=== PATIENT | female | born 1955 | race Caucasian/White ===

== ENCOUNTER 2016-08-07 15:24 | Observation (INO) | payer OTHER ==
[~2016-08-07] VITALS: Ht 165.1 cm; Wt 66.2 kg
--- NOTE | ~2016-08-07 | CON ---
PATIENT'S NAME: NITIN THOMPSON [facility] AGE: 61 Y [address] ROOM: [address] [place], [place] [address] LOCATION: GPCU ADMIT DATE: 08/07/2016 Consultation DISCHARGE DATE: FAMILY PHYSICIAN: SPENCER HUMPHREY MD ATTENDING PHYSICIAN: GAGAN MANRIQUEZ V DATE OF CONSULTATION: 08/08/2016 REFERRING PHYSICIAN: CUONG ROJAS MD HOSPITAL CONSULTATION REFERRING PROVIDER: Gagan Manriquez MD REASON FOR CONSULTATION: GI bleed and anemia. HISTORY OF PRESENT ILLNESS: This is a very pleasant, 61-year-old female, who was admitted through [facility]'s Emergency Room. The patient was complaining of increasing fatigue and near syncope episode as well as palpitations and some chest pain. She did state that her stomach has been "upset" for a number of days, though she has experienced a significant amount of stress at home secondary to losing her mother as well as her recently diagnosed with multiple myeloma. The patient has a history of iron-deficiency anemia as well as a hiatal hernia. From our records in 2013, she did undergo an upper endoscopy and colonoscopy in September of 2013. Her upper endoscopy did show a hiatal hernia. Her colonoscopy did show some scattered diverticula as well as some internal hemorrhoids, though no explanation for acute blood loss. She was recommended at that time to undergo a small bowel workup though did not go forth with any small bowel workup. She was found to be iron deficient with an iron of 23, TIBC of 479 as well as percent saturation of 5. She does admit to taking iron at home, though she states that she is nonconsistent every day. The patient was seen and examined. She does state that she feels that her abdomen is having "spasms." She has some mid-epigastric discomfort. She does also complain of some fatigue and lightheadedness. On admission, her hemoglobin was 6.0. She was transfused 2 units of packed red blood cells with a recheck hemoglobin of 8.2. She also had a Hematest positive at that time. She states that she is feeling much better from her initial presentation. She does use ibuprofen, not excessively, though admits to 1 tablet per day, with some times 2. The patient currently denies any chest pain, chest pressure, or shortness of breath. She does state that her weight has been stable. She denies any melenic stool and/or bright red blood per rectum. PATIENT'S NAME: NITIN THOMPSON [facility] AGE: 61 Y [address] ROOM: [place] [id number] LOCATION: GPCU ADMIT DATE: 08/07/2016 Consultation DISCHARGE DATE: FAMILY PHYSICIAN: SPENCER HUMPHREY MD ATTENDING PHYSICIAN: GAGAN MANRIQUEZ V PAST MEDICAL HISTORY: Iron-deficiency anemia. PAST SURGICAL HISTORY: Upper endoscopy and colonoscopy in 09/2013 secondary to anemia with no clear etiology. SOCIAL HISTORY: The patient denies any tobacco, alcohol, or recreational drug use. FAMILY HISTORY: The patient's mother had COPD. She denies any colon cancer or gastrointestinal diseases in her family. ALLERGIES: MACROLIDE ANTIBIOTICS, ETHYL ALCOHOL, ERYTHROMYCIN BASE, AZITHROMYCIN, AND LATEX. CURRENT MEDICATIONS: Please refer to the medication administration record. REVIEW OF SYSTEMS: A 10-point review of systems was completed. All were negative except for those identified in the History of Present Illness. PHYSICAL EXAMINATION: GENERAL: A very pleasant, 61-year-old female, lying in bed, who appears to be in no acute distress. VITAL SIGNS: Temperature 98.3, pulse of 74, respirations of 16, blood pressure 170/93, and oxygen saturation is 99% on room air. SKIN: [place], warm, and dry. No jaundice. HEENT: Head is normocephalic and atraumatic. Pupils are equal, round, and reactive to light. Sclerae are clear. Nonicteric. Oral mucosa is pink and moist. No thyromegaly. NECK: Soft and supple. CARDIOVASCULAR: Regular. Normal S1 and S2. RESPIRATORY: Respirations are even and unlabored. LUNGS: Clear to auscultation. ABDOMEN: Soft, round, nontender, and nondistended. Bowel sounds positive x4 quadrants. MUSCULOSKELETAL: No muscle weakness or atrophy. EXTREMITIES: No clubbing, cyanosis, or edema. NEUROLOGIC: Grossly nonfocal. LABORATORY DATA AND IMAGING STUDIES: PATIENT'S NAME: NITIN THOMPSON [facility] AGE: 61 Y [address] ROOM: [place] [address] LOCATION: GPCU ADMIT DATE: 08/07/2016 Consultation DISCHARGE DATE: FAMILY PHYSICIAN: SPENCER HUMPHREY MD ATTENDING PHYSICIAN: GAGAN MANRIQUEZ V Labs and Diagnostics: White blood cell count of 5.4, hemoglobin recheck of 8.2, with initial hemoglobin of 6.0, hematocrit of 26.5, MCV of 76.4, and platelets of 230,000. Chemistry panel includes a glucose of 102, BUN of 11, creatinine 0.7, sodium 143, potassium of 3.6, chloride of 112, and CO2 of 26. Liver enzymes on admission were all within normal limits. Hemoglobin A1c was less than 4.3. Cholesterol panel included a cholesterol of 117, triglycerides of 138, HDL of 44, VLDL of 27, and LDL of 46. Prothrombin time 10.0, INR is 0.95, and PTT of 21. Iron studies included iron of 23, TIBC of 479, and percent saturation of 5. Vitamin B12 of 693, folate of 18.9, ferritin of 5.30, and TSH was 1.240. Cardiac enzymes all have been within normal limits with a troponin of less than 0.040, CPK of 38, as well as CK-MB of 1.3. D- dimer was also within normal limits at 0.23. ASSESSMENT AND PLAN: Again this is a very pleasant, 61-year-old female, admitted with acute anemia with a hemoglobin of 6.0. She has received 2 units of packed red blood cells with a recheck of hemoglobin of 8.2. We were asked to see in consultation for anemia as well as positive Hematest stool. She is severely iron deficient with a positive Hematest stool. At this time, a long discussion was held with the patient for a complete workup of her acute blood loss as well as her anemia. The patient did undergo an upper endoscopy and colonoscopy in 2013 and is extremely hesitant to go forth with a repeat colonoscopy. I discussed in depth with the patient as well as Dr. Humphrey that was at bedside to give her information regarding making an "informed decision." It was left in agreement that the patient will undergo an upper endoscopy for further evaluation with her history of NSAID as well as increased stress. If negative for any etiology for anemia, possible colonoscopy would be warranted as this will be discussed in depth with the patient for her to make her entire decision. If both of these were negative, complete small bowel workup may be warranted to include a capsule endoscopy. We will make the patient n.p.o. at this time for possible upper endoscopy. Thank you for this consult and allowing us to participate in the care of this patient. We will continue to monitor, evaluate, and treat as appropriate. CATHERINE MERCHANT APRN FOR MD PRINCESS HANSON/zion /[id number] d: 08/08/16 1643 t: 08/12/16 1606, CONSULTATION REPORT
--- NOTE | ~2016-08-07 | HP ---
PATIENT'S NAME: NAI THOMPSONH Reece [facility] AGE: 61 Y [address] ROOM: [place] [address] LOCATION: GPCU ADMIT DATE: 08/07/2016 History & Physical DISCHARGE DATE: FAMILY PHYSICIAN: SPENCER THOMASON MD ATTENDING PHYSICIAN: STEF MORAES DATE OF SERVICE: CHIEF COMPLAINT: Chest pain and fatigue as well as palpitations. HISTORY OF PRESENT ILLNESS: The patient is a 61-year-old female with past medical history of not fully characterized iron deficiency anemia as well as a hiatal hernia. She presented to the ER today with complaints of increasing fatigue, near syncope, palpitations, and some chest pain. She lost her mother last night, and unfortunately, has been under a lot of stress due to this. In the ER, the patient was found to have a hemoglobin of [address] depressions on her EKGs, though those are not available to me at this time. The patient reports that she has not been taking her 65 mg of iron that is prescribed to her for approximately last month. Her compliance with this medication is doubtful overall. She denies any nausea, vomiting, any black tarry stools, or bright red blood per rectum. She does not have any cardiac history. REVIEW OF SYSTEMS: All 10 systems have been reviewed and negative aside from pertinent positives as mentioned above. PAST MEDICAL HISTORY: Significant for iron deficiency anemia. The patient had a very similar episode in 2013. At that point, she had an EGD and colonoscopy which were both unremarkable by report. FAMILY HISTORY: Significant for COPD in her mother. CURRENT MEDICATIONS: The patient denies taking any. SOCIAL HISTORY: Negative for any history of ongoing toxic habits. PATIENT'S NAME: NITIN THOMPSON [facility] AGE: 61 Y [address] ROOM: [place] [address] LOCATION: GPCU ADMIT DATE: 08/07/2016 History & Physical DISCHARGE DATE: FAMILY PHYSICIAN: SPENCER THOMASON MD ATTENDING PHYSICIAN: STEF MORAES PHYSICAL EXAMINATION: VITAL SIGNS: At this point, her heart rate is 106, blood pressure 189/76, saturating 96%, afebrile, respirations 14. GENERAL: Appears well-developed, well-nourished middle-aged female, younger age than stated in no acute distress. NEUROLOGICAL: Nonfocal. SKIN: Slightly pale. EYES: Pupils are equal and reactive to light. LYMPHATIC: No cervical lymphadenopathy. ENDOCRINE: No thyromegaly. LUNGS: Clear to auscultation. HEART: Rate is slightly tachycardic and regular. GI: Abdomen is soft, nontender, nondistended. : No costovertebral angle tenderness. VASCULAR: 2+ pedal pulses. MUSCULOSKELETAL: Unremarkable. PSYCHIATRIC: Appropriate mood, cognition, and affect. LABORATORY DATA: Review of the studies performed in the ER, at this point, I do have access to her EKG, and there are appreciable ST-wave depressions in leads V2 as well as V3. These do extend to V2, V3, V4, V5 as well as V6 on an earlier EKG. BUN is 17. Hemoglobin is 6.0. MCV is 76.6. Chest x-ray does show a hiatal hernia. ASSESSMENT AND PLAN: This is a 61-year-old female who will be admitted with: 1. Acute on chronic microcytic anemia. I doubt any active GI bleeding despite a positive guaiac test in the ER. She denies any melena and her BUN is unremarkable. I suspect that this is likely worsening chronic anemia of iron deficiency due to noncompliance with her medications. The patient is receiving 2 units of packed red blood cells ordered in the ER. We will check her iron studies hopefully from a sample prior to the transfusions. We will bring her hemoglobin up to a more comfortable number. At this point, the patient is refusing PPIs as they caused her some diverticulitis several years back. We will put her on Pepcid as she did have some gastritis on an EGD done several years back. We will get a GI consultation in the morning. 2. Angina with ST-segment depression. The patient does not have any risk factors for coronary artery disease. However, the ST depressions are pronounced, and she has not had a cardiac workup in the past. We will offer her a stress test either on this admission as an outpatient depending on how well we are able to stabilize her hemoglobin. 3. Accelerated hypertension. We will put her on beta blockers p.r.n. PATIENT'S NAME: NITIN THOMPSON [facility] AGE: 61 Y [address] ROOM: [address] [address] LOCATION: [facility] ADMIT DATE: 08/07/2016 History & Physical DISCHARGE DATE: FAMILY PHYSICIAN: SPENCER THOMASON MD ATTENDING PHYSICIAN: STEF MORAES Additional management will depend on clinical course. Critical care time dedicated to this patient encounter is 35 minutes. MD PAUL GREENE/zion /[id number] D: [id number] T: [id number] HISTORY & PHYSICAL
--- NOTE | ~2016-08-07 | DS ---
PATIENT'S NAME: NITIN THOMPSON [facility] AGE: 61 Y [address] ROOM: [address] [place], [place] [address] LOCATION: GPCU ADMIT DATE: 08/07/2016 Discharge Summary DISCHARGE DATE: 08/09/2016 FAMILY PHYSICIAN: Parmjit Humphrey MD ATTENDING PHYSICIAN: Main Broderick V ATTENDING PHYSICIAN: Hiro Qiu MD FINAL DIAGNOSES: 1. Anemia, resolved. 2. Hiatal hernia with Francisco lesions on EGD. 3. History of stress disorder. 4. Hypertension. CONSULTATION: GI, Dr. Addison. PROCEDURES: EGD by Dr. Addison. REASON FOR ADMISSION: This is a 61-year-old female, who presented with chest pain and palpitations. The patient's chest pain was thought to be secondary to hiatal hernia. Please see Dr. Broderick' admission H and P for further details. DIAGNOSTIC STUDIES: Cardiac enzymes were done during this admission and were essentially normal. Serial CBCs were done. White count remained stable throughout the course of this hospitalization. Hemoglobin was 6.2 on admission and 9.1 at the time of discharge. Platelet count was within normal range. Serial BMP showed normal electrolytes and kidney function tests. Liver function tests were normal as well magnesium level was normal. Hemoglobin A1c less than 4.3. Lipid panel was done and showed total cholesterol 117, triglycerides 138, HDL 44, LDL 46. PT, INR, PTT normal. Serum iron 23, TIBC 479, percent saturation of 5, ferritin 5.3, folate level 18.9, vitamin B12 level 693. TSH 1.24. D-dimer 0.23 and normal. Transferrin level 343. Chest x-ray was done on admission and showed no evidence of acute cardiopulmonary disease. Large hiatal hernia was noted. Stool was positive for Hemoccult test. EKG showed sinus rhythm with no acute ST changes. There was some question about ST depression, but that was thought to be minimal during this admission. Repeat EKG showed no acute ST changes. HOSPITAL COURSE: The patient was admitted for evaluation and management of chest pain. Cardiac enzymes were normal. The patient's chest pain was thought to be secondary to hiatal hernia. She also had anemia on presentation with a hemoglobin of 6. The patient did not require any nitro. Her chest pain resolved. Her palpitations resolved. After the blood transfusion, she was given 2 unit PRBC transfusion. After the transfusion, hemoglobin remained PATIENT'S NAME: NITIN THOMPSON [facility] AGE: 61 Y [address] ROOM: [address] [place], [place] [address] LOCATION: GPCU ADMIT DATE: 08/07/2016 Discharge Summary DISCHARGE DATE: 08/09/2016 FAMILY PHYSICIAN: Parmjit Humphrey MD ATTENDING PHYSICIAN: Main Broderick. GI was consulted, and the patient underwent an EGD. The EGD showed hiatal hernia with Francisco lesions. GI thought that the patient be put on Protonix and follow up outpatient with GI. The patient will also decide if she needs surgery for the hiatal hernia. Repeat EKG was done since the initial EKG showed slight ST depression. Repeat EKG was normal. The patient did not have any chest pain throughout the course of this hospitalization. She continued to do well. She stated that she has some stress in her life currently. She continued to do well and was discharged and asked to follow up with her primary care physician. DISCHARGE INSTRUCTIONS: The patient discharged on regular diet with activity as tolerated. She is to follow up with Dr. Parmjit Humphrey in 3-4 days' time. Follow up with GI at [facility] in 1 to 2 weeks' time. PCP to check a CBC and a BMP. GI to follow up with biopsy results. GI to address colonoscopy. Outpatient GI to arrange for surgical consult for hiatal hernia if the patient decides. The patient will also need Cardiology followup. Cardiology followup will be arranged for the patient. I called the patient and advised Cardiology follow up. She mentioned she would like to follow up with Dr. Mj Stone. I updated Dr. Mj Stone about the patient's hospital course. Hospitalist co-ordinator will arrange Cardiology appointment with the office and call the patient back. Patient has been doing well at home with no chest pain. She was notified later of the cardiology followup. DISCHARGE MEDICATIONS: 1. Norvasc 10 mg p.o. daily. 2. Tylenol 650 mg p.o. q.6 hours p.r.n. pain. 3. Vitamin B complex one tab p.o. daily. 4. Iron 65 mg p.o. daily p.r.n. anemia. 5. Multivitamin 1 tab p.o. daily. 6. Protonix p.o. b.i.d. This patient was managed by hospitalist and GI teams during this admission. HIRO QIU MD MT/zion /[id number] d: 08/10/16 0146 t: 08/25/16 1807, DISCHARGE SUMMARY
--- NOTE | ~2016-08-07 | ER ---
PATIENT'S NAME: NITIN THOMPSON [facility] AGE: 61 Y [address] ROOM: [address] [place] [id number] LOCATION: GPCU ADMIT DATE: 08/07/2016 ER/Outpatient Report DISCHARGE DATE: FAMILY PHYSICIAN: SPENCER HUMPHREY MD ATTENDING PHYSICIAN: STEF MORAES Time of Arrival: 1524 hours. Time of Exam: 1530 hours. IDENTIFICATION: A 61-year-old female. CHIEF COMPLAINT: Chest pain. HISTORY OF PRESENT ILLNESS: The patient is a 61-year-old female who felt dizzy and lightheaded 1 hour prior to arrival. Feeling a sense of heaviness, like her heartbeat was pounding over her heart. She also had some shortness of breath and generalized weakness. She has never had this happened before. She has no history of coronary artery disease. She does have a major stressor, her mother yesterday. The entire episode lasted approximately 20 minutes. At this time, the pounding sensation and heaviness has resolved. PAST MEDICAL HISTORY: ALLERGIES: TO Z-ANA. CURRENT MEDICATIONS: Denies. MEDICAL PROBLEMS: She said she had a history of anemia a few years back. It looks like in 2013 she had nausea and vomiting secondary to colitis, leukopenia, iron deficiency anemia, and significant stress. She had sigmoid diverticulitis in October of 2013 and was placed on antibiotics and IV fluids. She was transfused at that time. She states she had a normal colonoscopy and normal EGD at that time. PRIOR SURGERIES: Hysterectomy in 2003 and colonoscopy and EGD in 2013. SOCIAL HISTORY: The patient is . Lives here in [place]. Tobacco use, denies. Alcohol use, denies. Drug use, denies. PATIENT'S NAME: NITIN THOMPSON [facility] AGE: 61 Y [address] ROOM: [address] [place], [place] [address] LOCATION: GPCU ADMIT DATE: 08/07/2016 ER/Outpatient Report DISCHARGE DATE: FAMILY PHYSICIAN: SPENCER HUMPHREY MD ATTENDING PHYSICIAN: STEF MORAES FAMILY HISTORY: Positive for colon cancer in her sister. She denies any family history of premature coronary artery disease and she did not tell me about the colon cancer, I did find that in old records. REVIEW OF SYSTEMS: All systems reviewed. She has had no blood in her stools. No dark, tarry, or black stools. She has had a little bit of epigastric discomfort. PHYSICAL EXAMINATION: VITAL SIGNS: Height 5 feet 5 inches and weight 70.4 kg. Blood pressure 175/88, pulse 101, respirations 20, temperature 99, and saturations 100%. GENERAL: A 61-year-old female who appears diaphoretic and pale, in no acute distress. HEENT: Head: Normocephalic, atraumatic. Ears: TMs translucent, both ears. Eyes: Pupils equal and reactive to light and accommodation. Extraocular movements intact. Nose: Mucosa pink. No lesions or drainage. Mouth: No lesions. Pharynx benign. NECK: Supple. No lymphadenopathy. LUNGS: Clear to auscultation. HEART: Regular rate and rhythm with a 2/6 systolic murmur over the left lower sternal border. No radiation. ABDOMEN: Soft, nondistended, and nontender. SKIN: [place], pale, and diaphoretic. EXTREMITIES: No lower extremity edema. No calf tenderness. NEURO: The patient is alert and oriented x4. Cranial nerves 2 through 12 grossly intact. Motor strength 5/5 throughout. Sensation is intact to light touch. DIAGNOSTIC DATA: One-view chest x-ray, large hiatal hernia. Otherwise negative. EMERGENCY DEPARTMENT COURSE: An IV was initiated. EKG obtained at 1528 hours: Normal sinus rhythm at 99 beats per minute, no acute ST elevation, she does have ST depression noted in leads V2 to V4, no previous EKG available for comparison at this time. Repeat EKG at 1542 hours: Normal sinus rhythm at 98 beats per minute, no acute ST elevation, she does have ST depression noted in leads V2 to V4, no significant change when compared to earlier EKG. Repeat EKG at 1739 hours: Normal sinus rhythm at 98 beats per minute, no acute ST elevation, she continues to have some mild ST depression in V2 to V4, maybe slight improvement when compared to EKG at 1528 hours. Blood type is O negative. She is typed and crossed for 2 units of packed red blood cells. Her hemoglobin is critical at 6.0, hematocrit 21.6, microcytic-hypochromic indices. White blood cell count 6.4 PATIENT'S NAME: DONNANITIN [facility] AGE: 61 Y [address] ROOM: [address] [place], [place] [address] [facility] ADMIT DATE: 08/07/2016 ER/Outpatient Report DISCHARGE DATE: FAMILY PHYSICIAN: SPENCER HUMPHREY MD ATTENDING PHYSICIAN: STEF MORAES with a normal differential. INR 0.95. Sodium 143, potassium 3.6, chloride 110, CO2 of 25, BUN 17, creatinine 0.9, and blood sugar 150. Liver enzymes normal. CPK 48, CK-MB 1.7, and troponin I less than 0.040. Two-hour enzymes are also negative. Rectal exam: Hemoccult positive. IMPRESSION: 1. Severe anemia. 2. Probable gastrointestinal bleed with heme-positive stools. 3. Angina with ischemic EKG changes. Normal enzymes. PLAN: The patient will be typed and crossed for 2 units per packed red blood cells. The patient has had a PPI in the past and refuses any PPI due to side effects she has had previously. She adamantly refuses knowing that that is the treatment. Plan for admission per Dr. Moraes. She is a patient of Dr. Humphrey, I did talk with Dr. Humphrey, he recommended hospitalist admission. Dr. Moraes will evaluate the patient and provide for admission. RK RIDER MD CAR/modl /[id number] d: 08/07/16 2346 t: 08/08/16 0800, OUTPATIENT REPORT
[2016-08-07 15:47] LABS: BASOPHIL % 0.2 %; EOSINOPHIL % 0.3 %; HEMATOCRIT 21.6 % (33.0-46.0); IMMATURE GRANULOCYTE % 0.3 %; LYMPHOCYTE # 1.8 K/uL (0.8-4.0); LYMPHOCYTE % 28.3 %; MCHC 27.8 gm/dL (32.0-36.5); MCV 76.6 fl (83.0-98.0); MONOCYTE # 0.5 K/uL (0.0-1.0); MONOCYTE % 7.5 %; NEUTROPHIL % 63.4 %; NRBC % 0 /100WBC (0-0.00); PLATELET COUNT 284 K/uL (150-450); RDW-CV 18.6 % (11.9-14.6); WBC 6.4 K/uL (4.0-11.0)
[2016-08-07 15:49] LABS: MCH 21.3 pg (27.0-34.0); RBC 2.82 M/uL (3.50-5.50)
[2016-08-07 16:05] LABS: INR - (THERAPEUTIC) 0.95 (0.92-1.07); PTT 21 SECONDS (25-32)
[2016-08-07 16:10] LABS: ALBUMIN 3.7 gm/dL (3.5-5.0); ALK PHOS 84 IU/L (33-138); ALT 27 IU/L (12-78); ANION GAP 11.6 (10.0-19.0); AST 17 IU/L (10-40); BLOOD UREA NITROGEN 17 mg/dL (6-24); CALCIUM 8.2 mg/dL (8.5-10.5); CHLORIDE 110 mMol/L (96-110); CO2 25 mMol/L (22-32); CPK 48 IU/L (21-215); CREATININE 0.9 mg/dL (0.5-1.1); ESTIMATED GFR (MDRD EQUATION) > 60; MAGNESIUM 2.3 mg/dL (1.8-2.6); POTASSIUM 3.6 mMol/L (3.7-5.1); SODIUM 143 mMol/L (135-145); TOTAL BILIRUBIN 0.3 mg/dL (0.0-1.5); TOTAL PROTEIN 6.8 g/dL (6.0-8.4)
[2016-08-07 17:58] LABS: CPK 38 IU/L (21-215)
[2016-08-07] MEDS ORDERED: B COMPLEX1 EACH PO (18:44)
[2016-08-07] MEDS ORDERED: IRON65 PO (18:45)
[2016-08-07] MEDS ORDERED: WOMEN'S DAILY1 EAC1 PO (18:45)
--- NOTE | 2016-08-08 00:56 | NUR ---
THE PATIENT HAS BEEN FEELING TIRED THE LAST 2 DAYS. ON THURSDAY SHE BECAME DIZZY/SOB AND FELT CHEST PRESSURE FOR APPROX 20 MINUTES. SHE CAME TO THE ER WHERE THEY FOUND HER HGB 6.0. SHE ARRIVED ON PCU AT 1814 FROM ER WITH 1 UNIT PRBC'S INFUSING. CARDIAC ENZYMES NEGATIVE. ON PCU SHE APPEARED IN NO DISTRESS AND DENIED ALL PAIN/SOB DIZZYNESS. SHE STATED THIS HAS HAPPENED BEFORE WHEN SHE BECOMES STRESSED OUT (HER MOTHER ON THE ). LAST ADMISSION THEY PERFORMED AN EGD/COLONOSCOPY WHICH WERE NEGATIVE BUT THE ONLY CONCLUSION THEY CAME TO A POSSIBLE ULCER THAT HAD HEALED.
[2016-08-08 03:44] LABS: BASOPHIL % 0.4 %; EOSINOPHIL % 0.6 %; HEMOGLOBIN 8.2 g/dL (10.0-15.0); IMMATURE GRANULOCYTE % 0.6 %; LYMPHOCYTE # 1.1 K/uL (0.8-4.0); MCH 23.6 pg (27.0-34.0); MCHC 30.9 gm/dL (32.0-36.5); MCV 76.4 fl (83.0-98.0); MONOCYTE # 0.5 K/uL (0.0-1.0); MONOCYTE % 8.8 %; MPV 11.1 fl (9.4-12.4); NEUTROPHIL # (ANC) 3.7 K/uL (1.8-7.8); NEUTROPHIL % 68.6 %; NRBC % 0.6 /100WBC (0-0.00); PLATELET COUNT 230 K/uL (150-450); RBC 3.47 M/uL (3.50-5.50); RDW-CV 17.2 % (11.9-14.6); WBC 5.4 K/uL (4.0-11.0)
[2016-08-08 03:45] LABS: HEMATOCRIT 26.5 % (33.0-46.0)
[2016-08-08 04:01] LABS: ANION GAP 8.6 (10.0-19.0); BLOOD UREA NITROGEN 11 mg/dL (6-24); CALCIUM 8.4 mg/dL (8.5-10.5); CHLORIDE 112 mMol/L (96-110); CO2 26 mMol/L (22-32); CREATININE 0.7 mg/dL (0.5-1.1); ESTIMATED GFR (MDRD EQUATION) > 60; POTASSIUM 3.6 mMol/L (3.7-5.1); SODIUM 143 mMol/L (135-145)
--- NOTE | 2016-08-08 07:08 | NUR ---
Significant Event: A/0 X 3. SBP'S 140'S TO 170'S. ALL OTHER VSS ON RA. UNFUSED 2 UNITS PRBC'S FOR HBG OF 6. THIS AM HGB 8.2. HAS DENIED ALL PAIN, NO SOB, DIZZINESS. GI CONSULT TODAY. Follow up:
--- NOTE | 2016-08-08 15:23 | NUR ---
Significant Event: Patient is alert and oriented x3. Denies chest pain or shortness of breath. Blood pressure this morning was 183/98- MD notified and started on metoporlol. Brought it down into the 170's. Md notified again and switched to norvasc vs metporolol. GI consulted to day and will have an EGD in the morning. Regular diet. Denies bloody stools. R)FA IV, SL. Up independtly in the room. Worried about the finacial arrangments for her mother as she just and she states she is charge of that. [facility]operative [facility].
[2016-08-09 05:11] LABS: BASOPHIL % 0.6 %; EOSINOPHIL % 0.8 %; HEMATOCRIT 30.1 % (33.0-46.0); HEMOGLOBIN 9.1 g/dL (10.0-15.0); IMMATURE GRANULOCYTE % 0.4 %; LYMPHOCYTE # 1.2 K/uL (0.8-4.0); LYMPHOCYTE % 25.1 %; MCHC 30.2 gm/dL (32.0-36.5); MONOCYTE # 0.5 K/uL (0.0-1.0); MONOCYTE % 9.9 %; MPV 9.9 fl (9.4-12.4); NEUTROPHIL # (ANC) 3.1 K/uL (1.8-7.8); NEUTROPHIL % 63.2 %; NRBC % 0 /100WBC (0-0.00); PLATELET COUNT 229 K/uL (150-450); RBC 3.96 M/uL (3.50-5.50); RDW-CV 17.2 % (11.9-14.6); WBC 4.9 K/uL (4.0-11.0)
--- NOTE | 2016-08-09 05:24 | NUR ---
Significant Event: PATIENT A/0 X 3. AMBULATES STAND BY ASSIST TO UP AD ALTAF. SBP'S 150 TO 160'S. SHE COMPLAIN OF ITCHING AND BECAME RESTLESS, SBP'S WERE 170-180'S. GOT ORDER FOR 25MG IV BENADRYL. RE-ASSESSED 1 HOUR LATER SHE CALM AND BP WAS 146/74. ALL OTHER VSS ON RA. NO COMPLAINTS OF PAIN/SOB/DIZZINESS OR ANY OTHER COMPLICATIONS OTHER THAN RESTLESSNESS AND ITCHING. HAS BEEN NPO SINCE MIDNIGHT FOR EDG THIS AM. PERMITS SIGNED AND IN CHART. HGB THIS AM UP TO 9.1. Follow up: POSSIBLE D/C LATER IN THE DAY PENDING EDG RESULTS.
[2016-08-09 05:25] LABS: BLOOD UREA NITROGEN 13 mg/dL (6-24); CALCIUM 8.7 mg/dL (8.5-10.5); CHLORIDE 109 mMol/L (96-110); CO2 26 mMol/L (22-32); CREATININE 0.8 mg/dL (0.5-1.1); ESTIMATED GFR (MDRD EQUATION) > 60; MAGNESIUM 2.6 mg/dL (1.8-2.6); SODIUM 142 mMol/L (135-145)
[2016-08-09] MEDS ORDERED: NORVASC10 MG PO (13:07)
[2016-08-09] MEDS ORDERED: TYLENOL325 MG PO (13:18)
[2016-08-09] MEDS ORDERED: PROTONIX40 MG PO (13:19)
--- NOTE | 2016-08-09 14:58 | NUR ---
DISM. NOTE AT 1430: A/O X 3. REVIEW OF HOME MEDS AND NEW MEDS WITH HANDOUTS AND SIDE EFFECTS DISCUSSED. PRESCRIPTION GIVEN. DIET/ ACTIVITY FOLLOW UP APPT. PATIENT VOICED UNDERSTANDING.
== END 2016-08-09 14:30 | disposition disaster alternative care site (69) ==
LOC: GMED 15:24 → GPCU 17:09 → GMSU 18:53 → GPCU 18:54
PROVIDERS: Family Medicine; ADMIT Internal Medicine
PROC: 0DB98ZX Excision of Duodenum, Via Natural or Artificial Opening Endoscopic, Diagnostic (ICD-10-PCS; principal; 2016-08-09)
DX: D50.8 Other iron deficiency anemias (principal); K44.9 Diaphragmatic hernia without obstruction or gangrene; F32.9 Major depressive disorder, single episode, unspecified; I10 Essential (primary) hypertension; Z86.59 Personal history of other mental and behavioral disorders; Z90.710 Acquired absence of both cervix and uterus; Z98.890 Other specified postprocedural states; Z88.1 Allergy status to other antibiotic agents; Z88.8 Allergy status to other drugs, medicaments and biological substances; Z79.899 Other long term (current) drug therapy
CPT/HCPCS: G0378; J1200; J7030; J7050; P9016